=== PATIENT | female | born 1960 | race Caucasian/White ===

== ENCOUNTER → 2016-09-11 17:15 | Outpatient (CLI) | payer OTHER, MEDICAID | END | disposition home or self-care (01) | LOC: D.MAMMO 15:30 | DX: Z12.31 Encounter for screening mammogram for malignant neoplasm of breast (principal) ==

== ENCOUNTER → 2016-10-15 17:16 | Outpatient (CLI) | payer OTHER, MEDICAID | END | disposition home or self-care (01) | LOC: D.MAMMO 10:30 | DX: R92.8 Other abnormal and inconclusive findings on diagnostic imaging of breast (principal) ==

== ENCOUNTER → 2016-10-20 12:02 | Outpatient (CLI) | payer MEDICARE, MEDICAID | END | disposition home or self-care (01) | LOC: D.LABREF 12:02 | DX: Z13.9 Encounter for screening, unspecified (principal); N39.0 Urinary tract infection, site not specified ==

== ENCOUNTER → 2017-02-19 19:29 | Outpatient (CLI) | payer MEDICARE, MEDICAID ==
[2017-02-19 19:48] LABS: ALBUMIN 4.3 g/dL (3.4-5.0); ALKALINE PHOSPHATASE 87 U/L (46-116); ALT (SGPT) 18 U/L (10-68); BILIRUBIN - TOTAL 0.21 mg/dL (0.2-1.3); CALC OSMOLALITY 284 mosm/kg (275-300); CALCIUM 8.9 mg/dL (8.5-10.1); CARBON DIOXIDE 28.1 mmol/L (21.0-32.0); CHLORIDE - SERUM 103 mmol/L (98-107); CHOL - HDL RATIO 4.1 ratio (2.3-4.1); CHOLESTEROL, TOTAL 193 mg/dL (0-200); CREATININE - SERUM 0.7 mg/dL (0.6-1.3); GLUCOSE 104 mg/dL (74-106); HDL CHOLESTEROL 47 mg/dL (32-96); LDL CHOLESTEROL 126 mg/dL (0-100); LDL-HDL RATIO 2.7 ratio (1.5-3.5); POTASSIUM - SERUM 3.9 mmol/L (3.5-5.1); PROTEIN - SERUM 7.7 g/dL (6.4-8.2); SODIUM 143 mmol/L (136-145); TRIGLYCERIDE 100 mg/dL (30-200); UREA NITROGEN 12 mg/dL (7-18); eGFR NON AFRICAN AMERICAN > 90 mL/min (90-120)
== END | disposition home or self-care (01) ==
LOC: D.LABREF 19:29
PROVIDERS: Family Medicine
DX: Z00.00 Encounter for general adult medical examination without abnormal findings (principal)

== ENCOUNTER 2017-04-13 08:18 | Emergency (ER) | payer MEDICARE, MEDICAID | END 2017-04-13 09:10 | disposition home or self-care (01) | LOC: D.ER 08:18 | DX: B02.9 Zoster without complications (principal); G35 Multiple sclerosis; F17.200 Nicotine dependence, unspecified, uncomplicated ==

== ENCOUNTER 2017-04-14 11:27 | Emergency (ER) | payer MEDICARE, MEDICAID | END 2017-04-14 13:03 | disposition home or self-care (01) | LOC: D.ER 11:27 | DX: B02.9 Zoster without complications (principal); G35 Multiple sclerosis; F17.200 Nicotine dependence, unspecified, uncomplicated ==

== ENCOUNTER 2018-06-22 13:57 | Emergency (ER) | payer MEDICARE, MEDICAID ==
[~2018-06-22] VITALS: Ht 162.6 cm; Wt 54.5 kg
[2018-06-22 14:23] VITALS: BP 133/88; Ht 162.6 cm; Wt 54.5 kg
[2018-06-22] MEDS ORDERED: REQUIP1 MG PO (14:24)
[2018-06-22] MEDS ORDERED: ADDERALL 20 MG20 M1 PO (14:25)
[2018-06-22] MEDS ORDERED: NEURONTIN600 MG PO (14:25)
[2018-06-22] MEDS ORDERED: [UNRECOGNIZED DRUG - MIXTURE] (14:25)
[2018-06-22 15:42] LABS: BASOPHILS 0.6 % (0-2); EOSINOPHILS 2.6 % (0-7); HEMATOCRIT 42.3 % (36.0-48.0); HEMOGLOBIN 14.2 g/dL (12-16); IMMATURE GRANULOCYTES 0.2 % (0-5); LYMPHOCYTES 25.1 % (15-50); MCH 29.2 pg (26.0-34.0); MCHC 33.6 g/dL (31.0-37.0); MCV 86.9 fL (80.0-100.0); MEAN PLATELET VOLUME 9.6 fL (7.4-10.4); MONOCYTES 11.6 % (2-11); NEUTROPHILS 59.9 % (40-80); PLATELET COUNT 309 10x3/uL (130-400); RBC 4.87 10x6/uL (4.00-5.40); RDW 13.6 % (11.5-14.5); WBC 6.6 10x3/uL (4.8-10.8)
[2018-06-22 15:58] LABS: ALKALINE PHOSPHATASE 117 U/L (46-116); ALT (SGPT) 34 U/L (10-68); BILIRUBIN - TOTAL 0.23 mg/dL (0.2-1.3); CALC OSMOLALITY 282 mosm/kg (275-300); CALCIUM 9.2 mg/dL (8.5-10.1); CARBON DIOXIDE 27.6 mmol/L (21.0-32.0); CHLORIDE - SERUM 104 mmol/L (98-107); CREATININE - SERUM 0.5 mg/dL (0.6-1.3); GLUCOSE 90 mg/dL (74-106); PROTEIN - SERUM 7.3 g/dL (6.4-8.2); SODIUM 142 mmol/L (136-145); UREA NITROGEN 13 mg/dL (7-18); eGFR NON AFRICAN AMERICAN > 90 mL/min (90-120)
[2018-06-22 16:01] LABS: POTASSIUM - SERUM 5.1 mmol/L (3.5-5.1)
[2018-06-22 17:04] LABS: APPEARANCE CLEAR (CLEAR); BILIRUBIN NEGATIVE (NEGATIVE); COLOR YELLOW (YELLOW); GLUCOSE NEGATIVE (NEGATIVE); KETONE NEGATIVE (NEGATIVE); NITRITE NEGATIVE (NEGATIVE); PROTEIN NEGATIVE (NEGATIVE); UROBILINOGEN NORMAL (NORMAL)
[2018-06-22 17:05] LABS: BACTERIA MODERATE /hpf (NONE SEEN); EPITHELIAL CELLS OCC /hpf (0-5); WHITE CELLS - URINE 0-5 /hpf (0-5)
== END 2018-06-22 19:11 | disposition home or self-care (01) ==
LOC: D.ER 13:57
PROVIDERS: Family Medicine
DX: G35 Multiple sclerosis (principal)

== ENCOUNTER 2018-08-30 10:52 | Outpatient (CLI) | payer MEDICARE, MEDICAID ==
[~2018-08-30] VITALS: Ht 162.6 cm; Wt 58.2 kg
--- NOTE | ~2018-08-30 | HEMODYNAMI ---
PATIENT:JAZMÍN BERNARD MEDICAL RECORD: [id number] : 62 LOCATION:[place] ADMISSION DATE: 08/30/18 Generatedon:08/30/201813:24 Patient name: JAZMÍN BERNARD Patient #: [id number] SSN: : Date of study: 08/30/2018 Page: Of Hemodynamic Procedure Report Patient Data Patient Demographics Procedure consent was obtained First Name: JAZMÍN Gender: Female Last Name: JOANA : 1960 Middle Initial: KAZ Age: 57 year(s) Patient #: [id number] Race: Unknown Additional ID: [id number] Contact details Address: [address] [place] [address] [address] State: [place] City: [place] Zip code: [address] Past Medical History Allergies: No known allergies Admission Admission Data Admission Date: 08/30/2018 Admission Time: 10:52 Admit Source: Other Weight (lbs.): 128.09 Weight (kg.): 58.1 Lab Results Lab Result Date: 08/30/2018 Lab Result Time: 12:00 Biochemistry Name Units Result Min Max BUN mg/dl 12 --(-*--)-- 7 18 Creatinine mg/dl 0.6 --(*---)-- 0.6 1.3 CBC Name Units Result Min Max Hematocrit % 40.8 -*(----)-- 42 54 Hemoglobin g/dl 13.2 -*(----)-- 13.5 17.5 Procedure Procedure Types Cath Procedure Peripheral Cath Diagnostic Procedure Precision Crop Manager Peripheral Procedures [id number]-[id number] Procedure Description Procedure Date Procedure Date: 08/30/2018 Procedure Start Time: 13:14 Procedure End Time: 13:23 Procedure Staff Name Function Hunter Panchal MD Performing Physician Malini Smalls RN Nurse Monica Hood RT Monitor Tunde Weiss RT Scrub Procedure Data Cath Procedure Fluoroscopy Diagnostic fluoroscopy Total fluoroscopy Time: 0.6 time: 0.6 min min Diagnostic fluoroscopy Total fluoroscopy dose: 72 dose: 72 mGy mGy Contrast Material Contrast Material Type Amount (ml) Isovue 300 77 Entry Location Entry Primary Successful Side Size Upsize Upsize Entry Closure Succes sful Closure Location (Fr) 1 (Fr) 2 (Fr) Remarks Device Remarks Femoral Right 5 Fr Exoseal artery Estimated blood loss: 5 ml Diagnostic catheters Device Type Used For End Catheter Placement DIAGNOSTIC UF 5Fr Abdominal catheter ([id number]) aortogram with runoff Procedure Complications No complications Procedure Medications Medication Administration Route Dosage Oxygen etCO2 Nasal cannula 2 l/min Lidocaine 2% added to field 20 Heparin Flush Bag added to field 2 bags (1000units/500ml NS) 0.9% NaCl I.V. 100 ml/hr Versed I.V. 1 mg Fentanyl I.V. 50 mcg Versed I.V. 1 mg Fentanyl I.V. 50 mcg Hemodynamics Rest HGB: 13.2 (g/dl) Heart Rate: 83 (bpm) Snapshots Pre Cath Intra NCS Post Cath Vital Signs Time Heart Resp SPO2 etCO2 NIBP (mmHg) Rhythm Pain Sedation Rate (ipm) (%) (mmHg) Status Level (bpm) 12:52:04 82 17 98 0 133/79(107) NSR 0 (11) 10(A) , No pain 12:56:14 66 15 100 41.7 144/72(136) NSR 0 (11) 10(A) , No pain 13:00:26 86 19 100 40.9 134/76(101) NSR 0 (11) 10(A) , No pain 13:04:34 80 14 100 47.8 135/82(99) NSR 0 (11) 10(A) , No pain 13:08:40 79 13 100 10.6 136/85(106) NSR 0 (11) 10(A) , No pain 13:12:47 71 13 100 37.1 145/83(119) NSR 0 (11) 9(A) , No pain 13:16:59 82 13 100 33.3 147/83(119) NSR 0 (11) 9(A) , No pain 13:21:09 85 24 100 43.2 147/87(108) NSR 0 (11) 10(A) , No pain Medications Time Medication Route Dose Verified Delivered Reason Notes Eff ectiveness by by 12:57:55 Oxygen etCO2 2 Hunter Buffie used for Nasal l/min [facility] hosp[facility] spiritual care coordinator cannula 12:58:01 Lidocaine 2% added 20ml Hunter Hunter for local to vial [facility] anesthetic field MD BURNS 12:58:07 Heparin Flush added 2 Hunter Hunter used for Bag to bags [facility] procedure (1000units/500ml field MD BURNS NS) 12:58:15 0.9% NaCl I.V. 100 Hunter Buffie Per ml/hr [facility] RN physician 13:08:51 Versed I.V. 1 [address] [facility] Sm[facility] RN sedation 13:08:57 Fentanyl I.V. 50 Hunter Buff[address] for mcg [facility] Sm[facility] RN sedation 13:14:28 Versed I.V. 1 [address] [facility] Sm[facility] RN sedation 13:14:32 Fentanyl I.V. [address] Hunter Buff[address] mcg [facility] N[facility] Smalls RN sedation Procedure Log Time Note 12:30:42 Informed consent obtained and on chart 12:30:47 Admit Source: Other 12:31:23 Diagnostic Cath status Elective 12:31:24 Time tracking: Regular hours (M-F 7:00 - 5:00) 12:31:30 Plan of Care:Hemodynamics will remain stable., Cardiac rhythm will remain stable., Comfort level will be maintained., Respiratory function will remain adequate., Patient/ family verbilizes understanding of procedure., Procedure tolerated without complication., Recovers from procedure without complications.. 12:31:44 H&P Date Dictated: 08/24/2018 Within 30 days and on chart., H&P Addendum completed by physician on day of procedure. (MUST COMPLETE FOR ALL OUTPATIENTS). 12:35:40 Patient Weight : 128.09 lbs 12:37:08 Lab Result : BUN 12 mg/dl 12:37:08 Lab Result : Hemoglobin 13.2 g/dl 12:37:08 Lab Result : Creatinine 0.6 mg/dl 12:37:09 Lab Result : Hematocrit 40.8 % 12:37:12 Lab results completed and on chart. 12:46:11 Patient received from Pre/Post Procedure Room to [facility] 2 Alert and oriented. Tansferred to table in Supine position. 12:46:12 Warm blankets applied, and avtar hugger turned on for patient comfort. 12:46:12 Correct patient and procedure confirmed by team. 12:46:13 ECG and BP/O2 sat monitors applied to patient. 12:46:15 Pre-procedure instructions explained to patient. 12:46:16 Pre-op teaching completed and patient verbalized understanding. 12:50:52 Vital chart was started 12:51:18 PATIENT HAVING EXTREME RESTLESS LEG SYMPTOMS. 12:57:55 Oxygen 2 l/min etCO2 Nasal cannula was administered by Malini Smalls RN; used for procedure; 12:58:01 Lidocaine 2% 20ml vial added to field was administered by Hunter Panchal MD; for local anesthetic; 12:58:07 Heparin Flush Bag (1000units/500ml NS) 2 bags added to field was administered by Hunter Panchal MD; used for procedure; 12:58:15 0.9% NaCl 100 ml/hr I.V. was administered by Malini Smalls RN; Per physician; 13:03:49 Full Disclosure recording started 13:03:52 Rhythm: sinus rhythm 13:03:54 Baseline sample Acquired. 13:03:58 Family in patients room. 13:04:00 Patient NPO since Midnight. 13:04:10 Patient allergic to No known allergies 13:04:13 Is the patient allergic to Iodine/contrast media? No. 13:04:20 Is patient on blood thinner?No 13:04:21 Patient diabetic? No. 13:05:25 Previous problem with sedation/anesthesia? No ? 13:05:26 Snore? No 13:05:27 Sleep apnea? No 13:05:28 Deviated septum? No 13:05:29 Opens mouth fully? Yes 13:05:29 Sticks out tongue? Yes 13:05:31 Airway obstruction? No ? 13:05:33 Dentures? No ? 13:05:35 Pre procedure: right dorsailis pedis pulse 2+ Normal; easily identifiable; not easily obliterated 13:05:38 Patient pain scale 0/10 ?. 13:05:46 IV patent on arrival in left forearm with 0.9% NaCl at [facility]. 13:05:47 Alarms reviewed by R. N. 13:05:47 Sharps counted by scrub and verified by R.N. 13:05:54 Use device set CATH PACK 13:05:57 ACIST Syringe (29144) opened to sterile field. 13:05:58 ACIST Hand Control (75942) opened to sterile field. 13:05:58 ACIST Manifold (59183) opened to sterile field. 13:05:59 Medline Cath Pack ([id number]) opened to sterile field. 13:05:59 Bag Decanter (2002S) opened to sterile field. 13:05:59 DIAGNOSTIC WIRE .035 260cm J wire (305617) opened to sterile field. 13:06:10 SHEATH 5FR [place] (XYL400) opened to sterile field. 13:06:56 Final Timeout: patient, procedure, and site verified with staff and physician. All members of the team are in agreement. 13:06:59 Bilateral groins site verified by team. 13:07:02 Maximum allowable Isovue 300 dose 300ml. Physician notified. (300ml for normal creatinines. For patients with creatinine of 1.7 or higher multiply weight(kg) x 5 divided by creatinine.) 13:07:06 Fire Safety Assessment: A--An alcohol-based skin anteseptic being used preoperatively., C--Open oxygen or nitrous oxide is being used., D--An ESU, laser, or fiber-optic light is being used. 13:07:09 Physical assessment completed. ASA score P 2 - A patient with mild systemic disease as per Hunter Panchal MD. 13:07:12 Sedation plan: IV Moderate Sedation Medication:Versed, Fentanyl 13:08:51 Versed 1 mg I.V. was administered by Malini Smalls RN; for sedation; 13:08:57 Fentanyl 50 mcg I.V. was administered by Malini Smalls RN; for sedation; 13:11:19 Zero performed for pressure channel P1 13:14:26 Procedure started. 13:14:28 Versed 1 mg I.V. was administered by Malini Smalls RN; for sedation; 13:14:32 Fentanyl 50 mcg I.V. was administered by Malini Smalls RN; for sedation; 13:14:34 Local anesthetic to right femoral artery with Lidocaine 2% by Hunter Panchal MD.INITIAL ACCESS ONLY 13:15:00 Zero performed for pressure channel P1 13:15:43 A 5 Fr sheath was inserted into the Right Femoral artery 13:16:06 A DIAGNOSTIC UF 5Fr catheter ([id number]) was advanced over the wire and used for Abdominal aortogram with runoff. 13:18:08 Catheter removed. 13:18:16 Sheath removed intact; hemostasis achieved with Exoseal to the Right Femoral artery. 13:18:18 Procedure ended.(Physican Out) 13:18:40 Fluoroscopy time 00.60 minutes. 13:18:43 Fluoroscopy dose: 72 mGy 13:18:43 Flurop Dose total: 72 13:18:46 Contrast amount:Isovue 300 77ml. 13:18:50 Sharps counted by scrub and verified by R.N. 13:18:51 Insertion/operative site no bleeding no hematoma. 13:18:54 Post-op/insertion site Right Femoral artery dressed using a 4 x 4 and Tegaderm. 13:18:57 Post right femoral artery:stable, clean and dry 13:18:58 Post Procedure Pulses reassessed and unchanged 13:19:01 Post-procedure physical assessment completed. ASA score P 2 - A patient with mild systemic disease as per Hunter Panchal MD. 13:19:03 Post procedure rhythm: unchanged. 13:19:06 Estimated blood loss: 5 ml 13:19:08 Post procedure instruction explained to patient.Patient verbalizes understanding. 13:19:08 Patient needs reinforcement of post procedure teaching. 13:19:50 Procedure Complication : No complications 13:19:53 See physician's report for complete and final results. 13:20:06 EXOSEAL 5Fr (EX500) opened to sterile field. 13:20:21 Procedure and supply charges have been captured, reviewed, submitted and are correct. 13:23:40 Vital chart was stopped 13:23:42 Report given to Pre/Post Procedure Room. 13:23:45 Patient transfered to Pre/Post Procedure Room with Stretcher. 13:23:53 Procedure ended. 13:23:53 Full Disclosure recording stopped 13:23:57 End room use (Document Last) Device Usage Item Name Manufacture Quantity Catalog Hospital Part Current Minimal L ot# / Number Charge Number Stock Stock Serial# Code ACIST Acist 1 99202 205910 702709 204628 20 Syringe Medical (49111) Systems Inc ACIST Hand Acist 1 39860 579577 488564 680734 5 Control Medical (34656) Systems Inc ACIST Acist 1 45452 205853 556914 135000 5 Manifold Medical (59182) Systems Inc Medline Medline 1 [id number] 545492 98094 880543 5 Cath Pack ([id number]) Bag Microtek 1 2001S 238310 44537 580056 5 Decanter Medical Inc. () DIAGNOSTIC St Sergio 1 912420 821538 392557 160619 30 WIRE .035 260cm J wire (366830) SHEATH 5FR Terumo 1 HYD095 393328 751983 315041 5 [place] (JFM134) DIAGNOSTIC Cardinal 1 [id number] 568518 831603 690702 10 UF 5Fr Health catheter (159493P9) EXOSEAL 5Fr Cardinal 1 EX500 717457 879588 027334 10 (EX500) Health Signature Audit [place] Stage Time Signature Unsigned Intra-Procedure 08/30/2018 Monica 1:24:40 PM Counts RT(R) Signatures Monitor : Monica Signature : Counts RT Date : Time : [id number] [place] [address]
[~2018-08-30 10:52] MED LIST: ADDERALL 20 MG20 M1 PO; NEURONTIN600 MG PO; REQUIP1 MG PO; [UNRECOGNIZED DRUG - MIXTURE]
[2018-08-30] MEDS ORDERED: PROZAC20 MG PO (11:03)
[2018-08-30] MEDS ORDERED: PRAVACHOL20 MG PO (11:04)
[2018-08-30] MEDS ORDERED: KEFLEX500 MG PO (11:04)
[2018-08-30 11:18] VITALS: BP 121/64; Ht 162.6 cm; Wt 58.2 kg
[2018-08-30 11:25] LABS: BASOPHILS 0.5 % (0-2); EOSINOPHILS 3.4 % (0-7); HEMATOCRIT 40.8 % (36.0-48.0); HEMOGLOBIN 13.2 g/dL (12-16); IMMATURE GRANULOCYTES 0.2 % (0-5); LYMPHOCYTES 19.4 % (15-50); MCH 28.6 pg (26.0-34.0); MCHC 32.4 g/dL (31.0-37.0); MCV 88.3 fL (80.0-100.0); MEAN PLATELET VOLUME 9.3 fL (7.4-10.4); MONOCYTES 12.9 % (2-11); NEUTROPHILS 63.6 % (40-80); PLATELET COUNT 304 10x3/uL (130-400); RBC 4.62 10x6/uL (4.00-5.40); RDW 13.6 % (11.5-14.5); WBC 6.5 10x3/uL (4.8-10.8)
[2018-08-30 11:29] LABS: CALC OSMOLALITY 279 mosm/kg (275-300); CALCIUM 8.7 mg/dL (8.5-10.1); CARBON DIOXIDE 29.5 mmol/L (21.0-32.0); CHLORIDE - SERUM 103 mmol/L (98-107); CREATININE - SERUM 0.6 mg/dL (0.6-1.3); GLUCOSE 86 mg/dL (74-106); POTASSIUM - SERUM 4.2 mmol/L (3.5-5.1); SODIUM 141 mmol/L (136-145); UREA NITROGEN 12 mg/dL (7-18); eGFR NON AFRICAN AMERICAN > 90 mL/min (90-120)
--- NOTE | 2018-08-30 13:44 | NUR ---
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 PT IS DROWSY, DENIES ANY C/O AT THIS TIME. DRESSING TO RIGHT GROIN IS CDI, AREA IS SOFT AND NONTENDER. PEDAL PULSES PALPABLE. VSS, RESP WITH EASE ON O2 AT 2LPM VIA NC. HOB IS FLAT, PT INSTRUCTED TO KEEOP HEAD FLAT TO PILLOW AND RIGHT LEG STRAIGHT. FAMILY AT BEDSIDE. CALL LIGHT IN REACH. DR PARRA HAS ROUNDED.
--- NOTE | 2018-08-30 13:53 | NUR ---
PT HAD KNEE BENT UPON ARRIVAL OF NURSE IN ROOM, REMINDED PT TO KEEP LEG STRAIGHT, PT REPOSITIONED LEG AND DRESSING TO RIGHT GROIN REMAINS CDI, AREA IS SOFT AND NONTENDER. PEDAL PULSES PALPABLE. NSR, RATE 73. BP IS 150/84.
--- NOTE | 2018-08-30 14:23 | NUR ---
DRESSING CDI, PEDAL PULSES PALPABLE. HOB ELEVATED 30 DEGREES, VSS.
--- NOTE | 2018-08-30 14:59 | NUR ---
HOB FULLY ELEVATED, DRESSING CDI TO RIGHT GROIN PEDAL PULSES PALPABLE RESP WITH EASE ON ROOM AIR. VSS. DAUGHTER AT BEDSIDE, CALL LIGHT IN REACH,
--- NOTE | 2018-08-30 15:40 | NUR ---
1515 DRESSING REMAINS CDI, PULSES PALPABLE. PT HAS TOLERATED SANDWICH WITH NO C/O NAUSEA. IV DC'D WITH CATH INTACT, 1518 PT AMBULTED TO THE BATHROOM AND VOIDED QS. IS NOW DRESSING FOR DC TO HOME. 1535 PT HAS DRESSED FOR DC, DRESSING REMAINS CDI, PT IS ALERT AND DENIES ANY C/O. DC INSTRUCTIONS REVIEWED WTIH PT AND DAUGHTER WHO VERBALIZE UNDERSTANDING. PT ESCORTED TO PRIVATE AUTO VIA WC BY NURSE WITH DAUGHTER DRIVING HER HOME.
--- NOTE | 2018-09-01 14:40 | OP ---
PATIENT NAME: JAZMÍN BERNARD MEDICAL RECORD: [id number] :62 LOCATION:D.CAT ADMISSION DATE: SURGEON: ZAKIA PARRA MD DATE OF OPERATION: 08/30/2018 PROCEDURE: Aortofemoral runoff. DESCRIPTION: After right femoral artery was cannulated via modified Seldinger technique, an aortofemoral runoff was performed. FINDINGS: The abdominal aorta shows mild calcification, no significant stenosis. No evidence of aneurysm. Renal arteries nonselective showed no evidence of renal artery stenosis. Right iliac system: Right internal and external iliacs are free of disease. Femoral system right including deep, common, superficial all free of disease with 2-vessel runoff. Left: Left internal and external iliacs, free of disease. Left femoral system; superficial, common, and deep show no significant stenosis, good runoff distally. IMPRESSION: False positive, arterial Dopplers, no evidence of any significant disease. TRANSINT:[id number] Voice Confirmation ID: [id number] DOCUMENT ID: [id number] ZAKIA PARRA MD at 1440 CC: [id number] DICTATION DATE: 08/30/18 1334 CARD ROOM MANAGER: 08/30/18 1358 DEP CLI 08/30/18 [facility] [address] [place] [address]
== END 2018-08-30 15:35 | disposition home or self-care (01) ==
LOC: D.CATH 10:52
PROVIDERS: ATTEND Internal Medicine Interventional Cardiology
DX: I70.0 Atherosclerosis of aorta (principal); Z01.812 Encounter for preprocedural laboratory examination

== ENCOUNTER 2019-03-07 11:16 | Emergency (ER) | payer MEDICARE, MEDICAID ==
[~2019-03-07] VITALS: Ht 162.6 cm; Wt 56.8 kg
[~2019-03-07 11:16] MED LIST changes: +KEFLEX500 MG PO; +PRAVACHOL20 MG PO; +PROZAC20 MG PO
[2019-03-07 11:25] VITALS: Ht 162.6 cm; Wt 56.8 kg
[2019-03-07 11:48] LABS: BASOPHILS 0.7 % (0-2); EOSINOPHILS 2.3 % (0-7); HEMATOCRIT 36.3 % (36.0-48.0); HEMOGLOBIN 12.3 g/dL (12-16); LYMPHOCYTES 24.6 % (15-50); MCH 28.6 pg (26.0-34.0); MCHC 33.9 g/dL (31.0-37.0); MCV 84.4 fL (80.0-100.0); MEAN PLATELET VOLUME 8.9 fL (7.4-10.4); MONOCYTES 12.8 % (2-11); NEUTROPHILS 59.6 % (40-80); PLATELET COUNT 305 10x3/uL (130-400); RDW 14.2 % (11.5-14.5); WBC 5.6 10x3/uL (4.8-10.8)
[2019-03-07 12:03] LABS: ALBUMIN 3.5 g/dL (3.4-5.0); ALKALINE PHOSPHATASE 107 U/L (46-116); ALT (SGPT) 22 U/L (10-68); BILIRUBIN - TOTAL 0.27 mg/dL (0.2-1.3); CALC OSMOLALITY 282 mosm/kg (275-300); CALCIUM 8.6 mg/dL (8.5-10.1); CARBON DIOXIDE 25.5 mmol/L (21.0-32.0); CHLORIDE - SERUM 105 mmol/L (98-107); CREATININE - SERUM 0.7 mg/dL (0.6-1.3); GLUCOSE 130 mg/dL (74-106); POTASSIUM - SERUM 3.5 mmol/L (3.5-5.1); PROTEIN - SERUM 6.7 g/dL (6.4-8.2); SODIUM 141 mmol/L (136-145); UREA NITROGEN 12 mg/dL (7-18); eGFR NON AFRICAN AMERICAN > 90 mL/min (90-120)
[2019-03-07 13:11] VITALS: BP 104/53
== END 2019-03-07 13:11 | disposition home or self-care (01) ==
LOC: D.ER 11:16
PROVIDERS: Family Medicine
DX: R60.0 Localized edema (principal); G35 Multiple sclerosis; G25.81 Restless legs syndrome

== ENCOUNTER 2019-03-15 17:46 | Emergency (ER) | payer MEDICARE, MEDICAID ==
[~2019-03-15] VITALS: Ht 162.6 cm; Wt 56.4 kg
[2019-03-15 17:52] VITALS: BP 118/55; Ht 162.6 cm; Wt 56.4 kg
== END 2019-03-15 19:52 | disposition left against medical advice (07) ==
LOC: D.ER 17:46
DX: M79.605 Pain in left leg (principal)

== ENCOUNTER 2019-04-05 08:00 | Outpatient (CLI) | payer MEDICARE, MEDICAID ==
[2019-03-15 17:52] VITALS: BMI 21.3
== END 2019-04-05 23:59 | disposition home or self-care (01) ==
LOC: D.MAMMO 08:00
PROVIDERS: ATTEND Family Medicine
DX: Z12.31 Encounter for screening mammogram for malignant neoplasm of breast (principal)